=== PATIENT | male | born 1970 | race Caucasian/White ===

== ENCOUNTER → 2021-07-23 | Outpatient (CLI) | payer OTHER ==
[2021-07-23] VITALS (12 sets, daily range): BP systolic 102–124; BP diastolic 67–110; PULSE 121–147; TEMP 97.4
[~2021-07-23] VITALS: Ht 170.2 cm; Wt 59.8 kg
[~2021-07-23] MED LIST: ELIQUIS 5MG PO; NO HOME MEDICATIONS; PREDNISONE10 MG PO
[2021-07-23 10:13] LABS: INR 1.2 (0.8-3.0); PROTHROMBIN TIME 13.4 SECONDS (9.7-12.8)
== END ==
LOC: COL.RAD 09:00
PROVIDERS: Radiology Diagnostic Radiology
DX: R16.0 Hepatomegaly, not elsewhere classified (principal)
CPT/HCPCS: 32106